=== PATIENT | male | born 1945 | race Caucasian/White ===

== ENCOUNTER 2016-06-12 14:01 | Inpatient (IN) | payer BC, MEDICARE ==
[~2016-06-12] VITALS: Ht 162.6 cm; Wt 84.2 kg
[~2016-06-12 14:01] MED LIST: ACET-2902 PO; OMEP20 PO; PRED10 PO; SIMV-260 PO; VALA500T38 PO
[2016-06-12] MEDS ORDERED: NAPR-58 PO (14:11)
[2016-06-12 16:11] LABS: BASOPHILS % (AUTO) 0.8 % (0.0-2.0); EOSINOPHILS % (AUTO) 2.1 % (1.0-6.0); HEMATOCRIT 45.2 % (41-53); HEMOGLOBIN 15.4 g/dL (13.5-17.5); LYMPHOCYTES # (AUTO) 2.4 K/uL (1.0-4.8); LYMPHOCYTES % (AUTO) 35.5 % (22.0-44.0); MEAN CORPUSCULAR HEMOGLOBIN 32.5 pg (26.0-34.0); MEAN CORPUSCULAR VOLUME 96 fL (80-100); MONOCYTES # (AUTO) 0.8 K/uL (0.1-1.0); MONOCYTES % (AUTO) 11.5 % (2.0-9.0); NEUTROPHILS # (AUTO) 3.4 K/uL (1.8-7.7); NEUTROPHILS % (AUTO) 50.1 % (40.0-70.0); PLATELET COUNT (AUTO) 203 K/uL (150-450); RED BLOOD CELL COUNT(AUTO) 4.73 MIL/uL (4.50-5.90); RED CELL DISTRIBUTION WIDTH 13.2 % (11.5-14.5); WHITE BLOOD COUNT (AUTO) 6.7 K/uL (4.5-11.0)
[2016-06-12] MEDS ORDERED: ASPIRIN 81 MG CHEWABLE TABLET PO ONE (16:15)
[2016-06-12] MEDS ORDERED: NITROGLYCERIN 2% (1 GM=INCH) PACKET TP ONE (16:15)
[2016-06-12 16:21] LABS: ANION GAP 7 mmol/L (8-16); CALCIUM, TOTAL 8.6 mg/dL (8.8-10.5); CARBON DIOXIDE 28 mmol/L (22-29); CHLORIDE 101 mmol/L (98-107); CREATININE 0.68 mg/dL (0.60-1.30); GLOMERULAR FILTR. RATE CALC > 60 mL/min (>60); POTASSIUM 4.2 mmol/L (3.5-5.1); SODIUM SERUM 136 mmol/L (136-145); UREA NITROGEN, BLOOD 16 mg/dL (7-18)
[2016-06-12 16:27] LABS: ALANINE AMINOTRANSFERASE 46 U/L (12-78); ALBUMIN 3.9 g/dL (3.4-5.0); ASPARTATE AMINOTRANSFERASE 29 U/L (15-37); BILIRUBIN,TOTAL 0.3 mg/dL (0.1-1.0); TOTAL PROTEIN, SERUM 7.2 g/dL (6.4-8.2)
[2016-06-12] MEDS ORDERED: MAGNESIUM HYDROXIDE SUSPENSION 30 ML UDCUP PO PRN (17:15)
[2016-06-12] MEDS ORDERED: ACETAMINOPHEN 325 MG TABLET PO PRN ×2 (17:15→17:30)
[2016-06-12] MEDS ORDERED: IPRATROPIUM BROMIDE 0.5 MG/2.5 ML NEB SOLUTION NEB PRN (17:15)
[2016-06-12] MEDS ORDERED: ZOLPIDEM TARTRATE 5 MG TABLET PO PRN (17:15)
[2016-06-12] MEDS ORDERED: IBUPROFEN 600 MG TABLET PO PRN (17:15)
[2016-06-12] MEDS ORDERED: BISACODYL 10 MG RECTAL RECTAL SUPPOSITORY PR PRN (17:15)
[2016-06-12] MEDS ORDERED: MORPHINE SULFATE 2 MG/ML SYRINGE IVP PRN (17:15)
[2016-06-12] MEDS ORDERED: ALBUTEROL SULFATE 2.5 MG/0.5 ML NEB SOLUTION NEB PRN (17:15)
[2016-06-12] MEDS ORDERED: ONDANSETRON HCL 4 MG/2 ML VIAL IVP PRN ×2 (17:15→17:30)
[2016-06-12] MEDS ORDERED: 0.9% SODIUM CHLORIDE 10 ML SYRINGE IVP PRN (17:30)
[2016-06-12] MEDS: METOPROLOL TARTRATE 25 MG TABLET PO SCH (18:16)
[2016-06-12 20:49] VITALS: BP 123/59
[2016-06-12 23:06] LABS: CREATINE KINASE MB 1.8 ng/mL (0-5); CREATINE KINASE, TOTAL 116 U/L (39-308)
[2016-06-12] MEDS ORDERED: -PHARMACY VACCINE NOTE- MISC ONE ×2 (23:15)
[2016-06-12] MEDS ORDERED: INFLUENZA VIRUS VACCINE QVS 2016-17 (3YR+)/PF 60 MCG/0.5 ML SYRINGE IM ONE (23:15)
[2016-06-12 23:27] VITALS: BP 108/59
[2016-06-12] MEDS: HEPARIN SODIUM,PORCINE 5,000 UNITS/ML VIAL SQ SCH (23:56)
[2016-06-12] MEDS: NITROGLYCERIN 2% (1 GM=INCH) PACKET TP SCH (23:57)
[2016-06-13] MEDS: METOPROLOL TARTRATE 25 MG TABLET PO SCH (01:44)
[2016-06-13 04:08] VITALS: BP 100/51
[2016-06-13] MEDS: NITROGLYCERIN 2% (1 GM=INCH) PACKET TP SCH ×3 (06:00→17:31)
[2016-06-13 06:19] LABS: EOSINOPHILS % (AUTO) 3.1 % (1.0-6.0); HEMATOCRIT 42.7 % (41-53); HEMOGLOBIN 14.6 g/dL (13.5-17.5); LYMPHOCYTES # (AUTO) 2.4 K/uL (1.0-4.8); LYMPHOCYTES % (AUTO) 45.3 % (22.0-44.0); MEAN CORPUSCULAR HEMOGLOBIN 32.7 pg (26.0-34.0); MEAN CORPUSCULAR HGB CONC 34.1 G/dL (31.0-37.0); MEAN CORPUSCULAR VOLUME 96 fL (80-100); MONOCYTES # (AUTO) 0.5 K/uL (0.1-1.0); MONOCYTES % (AUTO) 9.5 % (2.0-9.0); NEUTROPHILS # (AUTO) 2.1 K/uL (1.8-7.7); NEUTROPHILS % (AUTO) 41.1 % (40.0-70.0); PLATELET COUNT (AUTO) 187 K/uL (150-450); RED BLOOD CELL COUNT(AUTO) 4.46 MIL/uL (4.50-5.90); RED CELL DISTRIBUTION WIDTH 13.2 % (11.5-14.5); WHITE BLOOD COUNT (AUTO) 5.2 K/uL (4.5-11.0)
[2016-06-13 06:51] LABS: ANION GAP 8 mmol/L (8-16); CALCIUM, TOTAL 8.1 mg/dL (8.8-10.5); CARBON DIOXIDE 26 mmol/L (22-29); CHLORIDE 103 mmol/L (98-107); CHOL/HDL RATIO 5.7 (4.2-7.3); CREATINE KINASE MB 1.5 ng/mL (0-5); CREATINE KINASE, TOTAL 94 U/L (39-308); CREATININE 0.74 mg/dL (0.60-1.30); GLOMERULAR FILTR. RATE CALC > 60 mL/min (>60); POTASSIUM 4.4 mmol/L (3.5-5.1); SODIUM SERUM 137 mmol/L (136-145); THYROID STIMULATING HORMONE 1.34 uIU/mL (0.36-3.74); UREA NITROGEN, BLOOD 14 mg/dL (7-18)
[2016-06-13 07:26] LABS: HEMOGLOBIN A1C 5.8 % (4.5-6.2)
[2016-06-13] MEDS ORDERED: TraMADol HCL 50 MG TABLET PO PRN (08:30)
[2016-06-13 08:42] VITALS: BP 110/58
[2016-06-13] MEDS: ASPIRIN 81 MG EC TABLET PO SCH (09:23)
[2016-06-13] MEDS: PANTOPRAZOLE SODIUM 40 MG DR TABLET PO SCH (09:23)
[2016-06-13] MEDS: HEPARIN SODIUM,PORCINE 5,000 UNITS/ML VIAL SQ SCH ×2 (09:23→17:29)
[2016-06-13 12:10] VITALS: BP 111/62
[2016-06-13 17:23] VITALS: BP 104/61
[2016-06-13 20:15] VITALS: BP 94/46
[2016-06-14] VITALS (9 sets, daily range): BP systolic 108–142; BP diastolic 55–83
[2016-06-14] MEDS: NITROGLYCERIN 2% (1 GM=INCH) PACKET TP SCH ×4 (00:49→18:15)
[2016-06-14] MEDS: HEPARIN SODIUM,PORCINE 5,000 UNITS/ML VIAL SQ SCH ×3 (00:49→16:15)
[2016-06-14 06:28] LABS: BASOPHILS # (AUTO) 0.05 K/uL (0.00-0.20); BASOPHILS % (AUTO) 0.7 % (0.0-2.0); EOSINOPHILS % (AUTO) 2.96 % (1.0-6.0); HEMATOCRIT 44.1 % (41-53); HEMOGLOBIN 14.9 g/dL (13.5-17.5); LYMPHOCYTES # (AUTO) 2.6 K/uL (1.0-4.8); LYMPHOCYTES % (AUTO) 38.9 % (22.0-44.0); MEAN CORPUSCULAR HEMOGLOBIN 31.9 pg (26.0-34.0); MEAN CORPUSCULAR HGB CONC 33.8 G/dL (31.0-37.0); MEAN CORPUSCULAR VOLUME 95 fL (80-100); MONOCYTES # (AUTO) 0.6 K/uL (0.1-1.0); MONOCYTES % (AUTO) 9.4 % (2.0-9.0); NEUTROPHILS # (AUTO) 3.2 K/uL (1.8-7.7); NEUTROPHILS % (AUTO) 48.1 % (40.0-70.0); PLATELET COUNT (AUTO) 196 K/uL (150-450); RED BLOOD CELL COUNT(AUTO) 4.66 MIL/uL (4.50-5.90); RED CELL DISTRIBUTION WIDTH 13.7 % (11.5-14.5); WHITE BLOOD COUNT (AUTO) 6.7 K/uL (4.5-11.0)
[2016-06-14 07:23] LABS: ALANINE AMINOTRANSFERASE 40 U/L (12-78); ALBUMIN 3.3 g/dL (3.4-5.0); ANION GAP 7 mmol/L (8-16); ASPARTATE AMINOTRANSFERASE 26 U/L (15-37); BILIRUBIN,TOTAL 0.4 mg/dL (0.1-1.0); CALCIUM, TOTAL 8.2 mg/dL (8.8-10.5); CARBON DIOXIDE 27 mmol/L (22-29); CHLORIDE 104 mmol/L (98-107); CREATININE 0.76 mg/dL (0.60-1.30); GLOMERULAR FILTR. RATE CALC > 60 mL/min (>60); POTASSIUM 3.9 mmol/L (3.5-5.1); SODIUM SERUM 138 mmol/L (136-145); TOTAL PROTEIN, SERUM 6.6 g/dL (6.4-8.2); UREA NITROGEN, BLOOD 16 mg/dL (7-18)
[2016-06-14] MEDS: ASPIRIN 81 MG EC TABLET PO SCH (09:08)
[2016-06-14] MEDS: PANTOPRAZOLE SODIUM 40 MG DR TABLET PO SCH (09:08)
[2016-06-14] MEDS ORDERED: SESTAMIBI TC99M/UD ISOTOPE 1 EA INJ INJ ONE ×2 (09:20→12:45)
[2016-06-14] MEDS ORDERED: REGADENOSON 0.4 MG/5 ML PF SYRINGE IVP ONE ×2 (10:59→12:39)
[2016-06-14] MEDS ORDERED: AMINOPHYLLINE 25 MG/ML 10 ML VIAL IV ONE (10:59)
[2016-06-14] MEDS ORDERED: AMINOPHYLLINE 25 MG/ML 10 ML VIAL IVP ONE (12:45)
[2016-06-15 00:33] VITALS: BP 109/60
[2016-06-15] MEDS: HEPARIN SODIUM,PORCINE 5,000 UNITS/ML VIAL SQ SCH ×2 (00:43→08:12)
[2016-06-15] MEDS: NITROGLYCERIN 2% (1 GM=INCH) PACKET TP SCH ×2 (00:43→06:50)
[2016-06-15 04:11] VITALS: BP 104/59
[2016-06-15 06:08] LABS: BASOPHILS % (AUTO) 0.9 % (0.0-2.0); EOSINOPHILS % (AUTO) 2.7 % (1.0-6.0); HEMATOCRIT 44.3 % (41-53); LYMPHOCYTES # (AUTO) 2.6 K/uL (1.0-4.8); LYMPHOCYTES % (AUTO) 41.6 % (22.0-44.0); MEAN CORPUSCULAR HEMOGLOBIN 32.3 pg (26.0-34.0); MEAN CORPUSCULAR HGB CONC 33.8 G/dL (31.0-37.0); MEAN CORPUSCULAR VOLUME 96 fL (80-100); MONOCYTES # (AUTO) 0.6 K/uL (0.1-1.0); MONOCYTES % (AUTO) 9.2 % (2.0-9.0); NEUTROPHILS # (AUTO) 2.9 K/uL (1.8-7.7); NEUTROPHILS % (AUTO) 45.6 % (40.0-70.0); PLATELET COUNT (AUTO) 196 K/uL (150-450); RED BLOOD CELL COUNT(AUTO) 4.64 MIL/uL (4.50-5.90); RED CELL DISTRIBUTION WIDTH 13.2 % (11.5-14.5); WHITE BLOOD COUNT (AUTO) 6.3 K/uL (4.5-11.0)
[2016-06-15 06:39] LABS: ANION GAP 10 mmol/L (8-16); CALCIUM, TOTAL 8.5 mg/dL (8.8-10.5); CARBON DIOXIDE 25 mmol/L (22-29); CHLORIDE 102 mmol/L (98-107); CREATININE 0.76 mg/dL (0.60-1.30); GLOMERULAR FILTR. RATE CALC > 60 mL/min (>60); POTASSIUM 4.1 mmol/L (3.5-5.1); SODIUM SERUM 137 mmol/L (136-145); UREA NITROGEN, BLOOD 15 mg/dL (7-18)
[2016-06-15 07:05] VITALS: BP 102/58
[2016-06-15] MEDS: ASPIRIN 81 MG EC TABLET PO SCH (08:12)
[2016-06-15] MEDS: PANTOPRAZOLE SODIUM 40 MG DR TABLET PO SCH (08:12)
[2016-06-15] MEDS ORDERED: NAPR500T PO (09:55)
[2016-06-15] MEDS ORDERED: ATOR10TA84 PO (10:11)
[2016-06-15] MEDS ORDERED: ASPI81TA2 PO ×2 (10:12→10:13)
[2016-06-15] MEDS ORDERED: METO25 PO (10:17)
== END 2016-06-15 11:00 | disposition home or self-care (01) | DRG 311 ==
LOC: EMS 14:02 → 5S 17:18 → 5N 20:05
PROVIDERS: ADMIT Internal Medicine Geriatric Medicine; ATTEND Internal Medicine Geriatric Medicine
PROC: 3E0234Z Introduction of Serum, Toxoid and Vaccine into Muscle, Percutaneous Approach (ICD-10-PCS; principal; 2016-06-12)
PROC: 3E0234Z Introduction of Serum, Toxoid and Vaccine into Muscle, Percutaneous Approach (ICD-10-PCS; 2016-06-12)
DX: I20.9 Angina pectoris, unspecified (principal); I45.10 Unspecified right bundle-branch block; M17.9 Osteoarthritis of knee, unspecified; E78.5 Hyperlipidemia, unspecified; E55.9 Vitamin D deficiency, unspecified; Z79.899 Other long term (current) drug therapy; Z23 Encounter for immunization
CPT/HCPCS: 78452; 82306; 82607; 82746; 83036; 83735; 84439; 84443; 93005; 93017; 93306; 99285; A9500; J0280; J1644; J2785

== ENCOUNTER 2023-03-24 16:32 | Emergency (ER) | payer BC, MEDICARE ==
[~2023-03-24] VITALS: Ht 154.9 cm; Wt 72.7 kg
[~2023-03-24 16:32] MED LIST changes: -ACET-2902 PO; +ASPI81TA39 PO; +NAPR-1181 PO; -OMEP20 PO; -PRED10 PO; -SIMV-260 PO; -VALA500T38 PO
[2023-03-24] MEDS ORDERED: htn PO (16:39)
[2023-03-24] MEDS ORDERED: SODIUM CHLORIDE 0.9% 250 ML IRRIG SOLUTION BOTTLE IRRIG ONE (18:15)
[2023-03-24] MEDS ORDERED: TraMADol HCL 50 MG TABLET PO ONE (18:15)
[2023-03-24 20:30] VITALS: TEMP 98.6
[2023-03-24 21:02] VITALS: BP 141/87; PULSE 85; RESP 16
== END 2023-03-24 21:03 | disposition home or self-care (01) ==
LOC: EMS 16:33
DX: S01.81XA Laceration without foreign body of other part of head, initial encounter (principal); S70.01XA Contusion of right hip, initial encounter; M19.90 Unspecified osteoarthritis, unspecified site; G89.29 Other chronic pain; I10 Essential (primary) hypertension; Z98.890 Other specified postprocedural states; W19.XXXA Unspecified fall, initial encounter; Y93.89 Activity, other specified; Y92.89 Other specified places as the place of occurrence of the external cause; Y99.8 Other external cause status
CPT/HCPCS: 12011; 70450; 72125; 72128; 72131; 99284